=== PATIENT | female | born 1935 | race Caucasian/White ===

== ENCOUNTER 2018-01-17 12:17 | Emergency (ER) | payer MEDICARE, OTHER ==
[~2018-01-17] VITALS: Ht 167.6 cm; Wt 69.4 kg
[~2018-01-17 12:17] MED LIST: AMIT75 PO; ASPI325 PO; ASPI81CH PO; ATOR40TA PO; CLOP75 PO; LOSHYD PO; METO25 PO; METO50 PO; NAPR500 PO; PRED20 PO; Prinivil10 MG PO
[2018-01-17] MEDS ORDERED: TYLECOD3 PO (14:27)
== END 2018-01-17 14:44 | disposition home or self-care (01) ==
LOC: ER 12:17
DX: S09.90XA Unspecified injury of head, initial encounter (principal); S20.211A Contusion of right front wall of thorax, initial encounter; M54.5 Low back pain; M54.6 Pain in thoracic spine; W18.2XXA Fall in (into) shower or empty bathtub, initial encounter; Z88.5 Allergy status to narcotic agent; Z88.8 Allergy status to other drugs, medicaments and biological substances; Z88.6 Allergy status to analgesic agent; Z79.899 Other long term (current) drug therapy
CPT/HCPCS: 70450; 71046; 72100; 72125; 99284; L0160

== ENCOUNTER 2018-03-13 07:04 | Day surgery (SDC) | payer MEDICARE, OTHER ==
[~2018-03-13] VITALS: Ht 167.6 cm; Wt 67.1 kg
[~2018-03-13 07:04] MED LIST changes: +TYLECOD3 PO
== END 2018-03-13 22:53 | disposition home or self-care (01) ==
LOC: ORSCMMR 07:04 → ORD 08:00 → ORSCMMR 22:53
PROVIDERS: Internal Medicine Gastroenterology
PROC: 0DB48ZX Excision of Esophagogastric Junction, Via Natural or Artificial Opening Endoscopic, Diagnostic (ICD-10-PCS; principal; 2018-03-13 08:00)
PROC: 0DB68ZX Excision of Stomach, Via Natural or Artificial Opening Endoscopic, Diagnostic (ICD-10-PCS; principal; 2018-03-13 08:00)
PROC: 0DB88ZX Excision of Small Intestine, Via Natural or Artificial Opening Endoscopic, Diagnostic (ICD-10-PCS; principal; 2018-03-13 08:00)
PROC: 0DB58ZX Excision of Esophagus, Via Natural or Artificial Opening Endoscopic, Diagnostic (ICD-10-PCS; principal; 2018-03-13 08:00)
DX: R10.13 Epigastric pain (principal); I69.820 Aphasia following other cerebrovascular disease; K44.9 Diaphragmatic hernia without obstruction or gangrene; K29.70 Gastritis, unspecified, without bleeding; K22.2 Esophageal obstruction; E78.1 Pure hyperglyceridemia; Z87.891 Personal history of nicotine dependence; I10 Essential (primary) hypertension; Z87.11 Personal history of peptic ulcer disease; Z79.82 Long term (current) use of aspirin; Z79.899 Other long term (current) drug therapy
CPT/HCPCS: J7030

== ENCOUNTER 2018-03-23 21:21 | Emergency (ER) | payer MEDICARE, OTHER ==
[~2018-03-23] VITALS: Ht 162.6 cm; Wt 70.3 kg
[2018-03-23 21:57] LABS: BASOPHILS ABSOLUTE AUTO 0.04 K/mm3 (0.00-0.23); BASOPHILS PERCENT AUTO 1 % (0-2); EOSINOPHILS ABSOLUTE AUTO 0.26 K/mm3 (0.00-0.68); EOSINOPHILS PERCENT AUTO 4 % (0-6); Hematocrit 34.3 % (33.0-51.0); Hemoglobin 11.5 g/dL (11.5-16.0); IMMATURE GRAN ABSOLUTE AUTO 0.01 K/mm3 (0.00-0.10); IMMATURE GRAN PERCENT AUTO 0 % (0-1); LYMPHOCYTES ABSOLUTE AUTO 1.84 K/mm3 (0.84-5.20); LYMPHOCYTES PERCENT AUTO 29 % (21-46); MONOCYTES ABSOLUTE AUTO 0.52 K/mm3 (0.16-1.47); MONOCYTES PERCENT AUTO 8 % (4-13); Mean Corpuscular HGB 28.7 pg (26.0-34.0); Mean Corpuscular HGB Conc 33.5 g/dL (31.5-36.5); Mean Corpuscular Volume 86 fL (80-100); Mean Platelet Volume 10.3 fL (9.1-12.4); NEUTROPHILS ABSOLUTE AUTO 3.71 K/mm3 (1.96-9.15); NEUTROPHILS PERCENT AUTO 58 % (41-73); Platelet Count 392 K/mm3 (150-400); RDW Coefficient Variation 13.6 % (11.7-14.2); RDW Standard Deviation 42.5 fL (35.1-46.3); Red Blood Cell Count 4.01 M/mm3 (3.80-5.20); White Blood Cell Count 6.38 K/mm3 (4.00-11.30)
[2018-03-23 22:11] LABS: Alanine Aminotransfer (ALT/SGP 23 U/L (12-78); Albumin, Blood 3.3 g/dL (3.4-5.0); Alk Phos 96 U/L (50-136); Anion Gap 10 mmol/L (6-16); Aspartate Aminotrans (AST/SGOT 24 U/L (12-37); Bilirubin, Total 0.4 mg/dL (0.1-1.0); Blood Urea Nitrogen 8 mg/dL (8-24); Bun/Creatinine Ratio 13.1 (12.0-20.0); CO2, Blood 23 mmol/L (21-32); Calcium, Blood 9.2 mg/dL (8.5-10.1); Chloride, Blood 104 mmol/L (98-108); Creatinine, Blood 0.61 mg/dL (0.40-1.00); Globulin, Blood 3.3 g/dL (2.2-4.0); Glomerular Filtration Rate >60 (60-); Glucose, Blood 106 mg/dL (70-99); Potassium, Blood 3.1 mmol/L (3.5-5.5); Sodium, Blood 137 mmol/L (136-145); Total Protein, Blood 6.6 g/dL (6.4-8.2); Troponin I <0.015 ng/mL (0.000-0.040)
[2018-03-23] MEDS ORDERED: Amitriptyline H25 MG PO (23:14)
== END 2018-03-23 23:20 | disposition home or self-care (01) ==
LOC: ER 21:21
PROVIDERS: Emergency Medicine
DX: R07.9 Chest pain, unspecified (principal); G47.00 Insomnia, unspecified; Z88.5 Allergy status to narcotic agent; Z88.6 Allergy status to analgesic agent; Z79.899 Other long term (current) drug therapy; I10 Essential (primary) hypertension
CPT/HCPCS: 71046; 80053; 84484; 85025; 99285-25

== ENCOUNTER 2018-07-15 21:45 | Observation (INO) | payer MEDICARE, OTHER ==
[~2018-07-15] VITALS: Ht 165.1 cm; Wt 86.6 kg
[~2018-07-15 21:45] MED LIST changes: +AMIT50 PO; +Amitriptyline H25 MG PO; +ENOX40I SC; +Percocet 5-3251 EACH PO
[2018-07-15 23:05] LABS: BASOPHILS ABSOLUTE AUTO 0.03 K/mm3 (0.00-0.23); BASOPHILS PERCENT AUTO 0 % (0-2); EOSINOPHILS ABSOLUTE AUTO 0.03 K/mm3 (0.00-0.68); EOSINOPHILS PERCENT AUTO 0 % (0-6); Hematocrit 28.9 % (33.0-51.0); Hemoglobin 9.7 g/dL (11.5-16.0); IMMATURE GRAN ABSOLUTE AUTO 0.05 K/mm3 (0.00-0.10); IMMATURE GRAN PERCENT AUTO 1 % (0-1); LYMPHOCYTES ABSOLUTE AUTO 0.69 K/mm3 (0.84-5.20); LYMPHOCYTES PERCENT AUTO 7 % (21-46); MONOCYTES PERCENT AUTO 8 % (4-13); Mean Corpuscular HGB 29.1 pg (26.0-34.0); Mean Corpuscular HGB Conc 33.6 g/dL (31.5-36.5); Mean Corpuscular Volume 87 fL (80-100); Mean Platelet Volume 10.3 fL (9.1-12.4); NEUTROPHILS ABSOLUTE AUTO 9.08 K/mm3 (1.96-9.15); NEUTROPHILS PERCENT AUTO 85 % (41-73); Platelet Count 447 K/mm3 (150-400); RDW Coefficient Variation 13.7 % (11.7-14.2); RDW Standard Deviation 43.6 fL (35.1-46.3); Red Blood Cell Count 3.33 M/mm3 (3.80-5.20); White Blood Cell Count 10.68 K/mm3 (4.00-11.30)
[2018-07-15 23:16] LABS: Alanine Aminotransfer (ALT/SGP 54 U/L (12-78); Albumin, Blood 2.9 g/dL (3.4-5.0); Albumin/Globulin Ratio 0.8 (0.8-1.8); Alk Phos 196 U/L (50-136); Anion Gap 13 mmol/L (6-16); Aspartate Aminotrans (AST/SGOT 66 U/L (12-37); Bilirubin, Total 1.6 mg/dL (0.1-1.0); Blood Urea Nitrogen 13 mg/dL (8-24); Bun/Creatinine Ratio 21.3 (12.0-20.0); CO2, Blood 24 mmol/L (21-32); Calcium, Blood 8.8 mg/dL (8.5-10.1); Chloride, Blood 97 mmol/L (98-108); Creatinine, Blood 0.61 mg/dL (0.40-1.00); Globulin, Blood 3.6 g/dL (2.2-4.0); Glomerular Filtration Rate >60 (60-); Glucose, Blood 93 mg/dL (70-99); Magnesium, Blood 1.8 mg/dL (1.6-2.4); Potassium, Blood 3.5 mmol/L (3.5-5.5); Sodium, Blood 134 mmol/L (136-145); Total Protein, Blood 6.5 g/dL (6.4-8.2); Troponin I <0.015 ng/mL (0.000-0.040)
[2018-07-15 23:17] LABS: D-Dimer, Quantitative 1.64 mg/L FEU (0.00-0.52); International Normalized Ratio 1.04; Prothrombin Time Results 10.7 Sec (9.7-11.5)
[2018-07-16] MEDS ORDERED: ASPI325 PO (03:28)
[2018-07-16 12:47] LABS: Hemoglobin 9.3 g/dL (11.5-16.0); Mean Corpuscular HGB 28.8 pg (26.0-34.0); Mean Corpuscular HGB Conc 32.1 g/dL (31.5-36.5); Mean Platelet Volume 9.7 fL (9.1-12.4); Platelet Count 446 K/mm3 (150-400); RDW Standard Deviation 45.7 fL (35.1-46.3); Red Blood Cell Count 3.23 M/mm3 (3.80-5.20); White Blood Cell Count 6.58 K/mm3 (4.00-11.30)
[2018-07-16 12:53] LABS: Mean Corpuscular Volume 90 fL (80-100)
[2018-07-16 13:10] LABS: Alanine Aminotransfer (ALT/SGP 51 U/L (12-78); Albumin, Blood 2.7 g/dL (3.4-5.0); Albumin/Globulin Ratio 0.8 (0.8-1.8); Alk Phos 174 U/L (50-136); Anion Gap 10 mmol/L (6-16); Aspartate Aminotrans (AST/SGOT 60 U/L (12-37); Bilirubin, Total 1.1 mg/dL (0.1-1.0); Blood Urea Nitrogen 11 mg/dL (8-24); CO2, Blood 25 mmol/L (21-32); Calcium, Blood 9.1 mg/dL (8.5-10.1); Chloride, Blood 100 mmol/L (98-108); Creatinine, Blood 0.55 mg/dL (0.40-1.00); Globulin, Blood 3.3 g/dL (2.2-4.0); Glomerular Filtration Rate >60 (60-); Glucose, Blood 78 mg/dL (70-99); Potassium, Blood 3.5 mmol/L (3.5-5.5); Sodium, Blood 135 mmol/L (136-145)
[2018-07-16 13:58] LABS: Source, Urine Clean Catch
[2018-07-16 14:15] LABS: Bilirubin, Urine Neg (Neg); Blood, Urine 2+ (Neg); Glucose Qualitative, Urine Neg (Neg); Ketones, Urine 4+ (Neg); Leukocyte Esterase, Urine Neg (Neg); Nitrite, Urine Neg (Neg); Protein, Urine Neg (Neg); Specific Gravity, Urine 1.015 (1.003-1.022); Urobilinogen, Urine 1+ (Normal)
[2018-07-16 14:24] LABS: Appearance, Urine Clear (Clear); Color, Urine Yellow (P-Yellow)
[2018-07-16 14:25] LABS: Bacteria Few /hpf; Squamous Epithelial Cells Few /hpf (Few); White Blood Cells, Urine 0-2 /hpf (0-5)
[2018-07-16 14:32] LABS: U Amphetamine Screen Not Detected; U Barbituate Screen Not Detected; U Benzodiazapine Screen Not Detected; U Buprenorphine Screen Not Detected; U Cannabinoids Screen Not Detected; U Cocaine Screen Not Detected; U Methadone Screen Not Detected; U Methamphetamine Screen Not Detected; U Opiates Screen Not Detected; U Oxycodone Screen Not Detected; U Phencyclidine Screen Not Detected; U Propoxyphene Screen Not Detected
[2018-07-17] MEDS ORDERED: GAVILAX17 GM PO (13:37)
== END 2018-07-17 16:05 | disposition home or self-care (01) ==
LOC: ER 21:45 → MEDS 21:46 → SURS 07-16 02:00 → MEDS 07-16 02:24 → SURS 07-16 18:45
PROVIDERS: Emergency Medicine; Internal Medicine
DX: R55 Syncope and collapse (principal); I10 Essential (primary) hypertension; I63.9 Cerebral infarction, unspecified; D64.9 Anemia, unspecified; Z87.19 Personal history of other diseases of the digestive system; Z86.79 Personal history of other diseases of the circulatory system; Z86.73 Personal history of transient ischemic attack (TIA), and cerebral infarction without residual deficits; Z79.01 Long term (current) use of anticoagulants; Z79.899 Other long term (current) drug therapy; Z88.5 Allergy status to narcotic agent; Z88.8 Allergy status to other drugs, medicaments and biological substances; Z96.659 Presence of unspecified artificial knee joint; Z79.82 Long term (current) use of aspirin; Z96.651 Presence of right artificial knee joint
CPT/HCPCS: 36415; 71260; 73562-RT; 80053; 81001; 83735; 84484; 85025; 85027; 85379; 85610; 85730; 93005; 93010; 93306; 96360; 96361; 96372; 97110; 97116; 97162; 97530; 99285-25; G0378; G8978; G8979; J1650; J7030; Q9967

== ENCOUNTER 2019-06-18 06:33 | Day surgery (SDC) | payer MEDICARE, OTHER ==
[~2019-06-18] VITALS: Ht 167.6 cm; Wt 68.4 kg
[~2019-06-18 06:33] MED LIST changes: +GAVILAX17 GM PO
--- NOTE | 2019-06-18 07:14 | NUR ---
History, Chart, Medications and Allergies reviewed before start of procedure. Lungs clear T/O to Auscultation. Patient confirms NPO status and agrees with scheduled surgery.
--- NOTE | 2019-06-18 12:46 | NUR ---
RAPID RESPONSE PT A&0X4, VSS, FIRST TIME UP POST-OP L TKA W/GB & FWW. TOOK FEW STEPS, MOVED THE CHAIR TO BEHIND PT, PT REPORTED "I AM GOING TO PASS OUT." QUICKLY SEATED PT PT BEGAN TO PASS OUT. CALLED CHARGE AND RAPID RESPONSE. LAYED PT ALL THE WAY BACK IN CHAIR WITH LEGS ELEVATED, APICAL PULSE PRESENT, TURNED UP OXYGEN TO 5 L NC, CHANGED IVF TO BOLUS, BEGAN TAKING VITALS. PT MOVED, OPENED EYES, REPORTED EXTREME PAIN IN LLE, MOVED BLE'S AND BEGAN MOANING REPEATEDLY R/T REP PAIN IN LLE.
--- NOTE | 2019-06-18 17:20 | NUR ---
SHIFT SUMMARY PT A&OX4, VSS, S/P L TKA, AQUACEL CDI/KI WRAP, TEDS, SCDS, POLAR RACHEL ON. PAIN MANAGED PER EMAR. [place] PO, DENIES N&V. AMB W/FWW & GB TO BSC & CHAIR. RAPID RESPONSE CALLED; PT HAD A SYNCOPAL EPISODE TODAY UPON REACHING CHAIR FOLLOWING 1ST TIME OOB; HAS REMAINED ASYPTOMATIC SINCE. WILL REPORT TO ONCOMING NOC RN.
--- NOTE | 2019-06-18 21:38 | NUR ---
OF 10 OUT OF 10 PAIN.RN CALLED.BSC ONLY DUE TO PAIN LEVEL.
[2019-06-19 04:52] LABS: BASOPHILS ABSOLUTE AUTO 0.02 K/mm3 (0.00-0.23); BASOPHILS PERCENT AUTO 0 % (0-2); EOSINOPHILS ABSOLUTE AUTO 0.09 K/mm3 (0.00-0.68); EOSINOPHILS PERCENT AUTO 1 % (0-6); Hemoglobin 9.7 g/dL (11.5-16.0); IMMATURE GRAN ABSOLUTE AUTO 0.04 K/mm3 (0.00-0.10); IMMATURE GRAN PERCENT AUTO 0 % (0-1); LYMPHOCYTES ABSOLUTE AUTO 0.93 K/mm3 (0.84-5.20); LYMPHOCYTES PERCENT AUTO 8 % (21-46); MONOCYTES ABSOLUTE AUTO 0.93 K/mm3 (0.16-1.47); MONOCYTES PERCENT AUTO 8 % (4-13); Mean Corpuscular HGB 28.2 pg (26.0-34.0); Mean Corpuscular HGB Conc 32.3 g/dL (31.5-36.5); Mean Corpuscular Volume 87 fL (80-100); Mean Platelet Volume 9.3 fL (9.1-12.4); NEUTROPHILS ABSOLUTE AUTO 9.25 K/mm3 (1.96-9.15); NEUTROPHILS PERCENT AUTO 82 % (41-73); Platelet Count 379 K/mm3 (150-400); RDW Coefficient Variation 13.4 % (11.7-14.2); RDW Standard Deviation 42.9 fL (35.1-46.3); Red Blood Cell Count 3.44 M/mm3 (3.80-5.20); White Blood Cell Count 11.26 K/mm3 (4.00-11.30)
[2019-06-19 05:08] LABS: Anion Gap 6 mmol/L (6-16); Blood Urea Nitrogen 8 mg/dL (8-24); Bun/Creatinine Ratio 13.3 (12.0-20.0); CO2, Blood 28 mmol/L (21-32); Calcium, Blood 8.4 mg/dL (8.5-10.1); Chloride, Blood 102 mmol/L (98-108); Glomerular Filtration Rate >60 (60-); Glucose, Blood 128 mg/dL (70-99); Potassium, Blood 3.4 mmol/L (3.5-5.5); Sodium, Blood 136 mmol/L (136-145)
--- NOTE | 2019-06-19 06:06 | NUR ---
SHIFT SUMMARY: SONY IS POD1 FOR A LEFT TOTAL KNEE. SHE IS A&OX4. SHE IS TOLERATING PO INTAKE ALTHOUGH SHE DID HAVE AN EPISODE OF EMESIS AFTER TAKING ORAL MEDICATION ON AN EMPTY STOMACH. SHE WAS ENCOURAGED TO EAT PRIOR TO TAKING MEDICATION ESPECIALLY SINCE SHE DOES HAVE MULTIPLE ULCERS. SHE HAS BEEN TRANSFERRING TO THE BEDSIDE COMMODE BUT HAS DECLINED TO WALK. SHE REPORTS POOR PAIN CONTROL WITH PO MEDICATIONS, SOMEWHAT BETTER WITH IV DILAUDID (5/10). SHE HAS RESTED FOR THE MAJORITY OF THE NIGHT. SHE IS ABLE TO MAKE HER NEEDS KNOWN. SHE IS VOIDING WITHOUT DIFFICULTY. IV IS PATENT, SALINE LOCKED. SHE REPORTED INTENSE PAIN FOR THE FIRST COUPLE OF WEEKS AFTER HER RIGHT TOTAL KNEE REPLACEMENT IN THE PAST. SHE IS LYING IN BED WITH HER CALL LIGHT IN REACH.
--- NOTE | 2019-06-19 18:16 | NUR ---
SUMMARY PATIENT REPORTS INTERMITTENT NAUSEA MEDICATED X2 WITH RELIEF OF NAUSEA. PATIENT REPORTS LEFT KNEE PAIN BUT DECLINES PAIN MEDS AT THIS TIME AND STATES SHE WILL CALL TO REQUEST MEDS NEEDED. POLAR PACK IN PLACE TO LEFT KNEE. PATIENT IS PLANNING TO DISCHARGE TO HOME TOMORROW AND FEELS SHE WILL BE READY TO MANAGE AT HOME
[2019-06-20] MEDS ORDERED: Percocet 5-3251 EACH PO (09:52)
[2019-06-20] MEDS ORDERED: ASPI81CH PO (09:55)
--- NOTE | 2019-06-20 12:25 | NUR ---
DISCHARGE INSTRUCTIONS GIVEN, PT SENT WITH SCRIPTS. ACCOMPANIED OFF UNIT BY THIS RN AND KHOA RUIZ.
== END 2019-06-20 12:15 | disposition home or self-care (01) ==
LOC: ORSCMMR 06:33 → ORD 07:30 → ORSCMMR 08:15 → SURS 10:47 → ORD 15:45 → ORSCMMR 06-20 12:15
PROVIDERS: Orthopaedic Surgery
PROC: 0SRD0JA Replacement of Left Knee Joint with Synthetic Substitute, Uncemented, Open Approach (ICD-10-PCS; principal; 2019-06-18 08:30)
DX: M17.12 Unilateral primary osteoarthritis, left knee (principal); M10.9 Gout, unspecified; I10 Essential (primary) hypertension; Z87.891 Personal history of nicotine dependence; Z79.899 Other long term (current) drug therapy
CPT/HCPCS: 36415; 73560-LT; 80048; 82947; 85025; 86850; 86900; 86901; 88300; 97110; 97116; 97162; C1713; C1776; J0171; J0690; J0735; J1170; J1885; J2250; J2310; J2405; J2704; J2795; J7120

== ENCOUNTER 2020-01-12 17:49 | Emergency (ER) | payer MEDICARE, OTHER ==
[~2020-01-12] VITALS: Ht 167.6 cm; Wt 63.5 kg
[2020-01-12 18:13] LABS: BASOPHILS ABSOLUTE AUTO 0.07 K/mm3 (0.00-0.23); BASOPHILS PERCENT AUTO 1 % (0-2); EOSINOPHILS ABSOLUTE AUTO 0.28 K/mm3 (0.00-0.68); EOSINOPHILS PERCENT AUTO 3 % (0-6); Hemoglobin 11.8 g/dL (11.5-16.0); IMMATURE GRAN ABSOLUTE AUTO 0.02 K/mm3 (0.00-0.10); IMMATURE GRAN PERCENT AUTO 0 % (0-1); LYMPHOCYTES ABSOLUTE AUTO 2.17 K/mm3 (0.84-5.20); LYMPHOCYTES PERCENT AUTO 27 % (21-46); MONOCYTES ABSOLUTE AUTO 0.69 K/mm3 (0.16-1.47); MONOCYTES PERCENT AUTO 9 % (4-13); Mean Corpuscular HGB 27.4 pg (26.0-34.0); Mean Corpuscular HGB Conc 31.9 g/dL (31.5-36.5); Mean Corpuscular Volume 86 fL (80-100); Mean Platelet Volume 9.8 fL (9.1-12.4); NEUTROPHILS ABSOLUTE AUTO 4.91 K/mm3 (1.96-9.15); NEUTROPHILS PERCENT AUTO 60 % (41-73); Platelet Count 454 K/mm3 (150-400); RDW Coefficient Variation 13.9 % (11.7-14.2); RDW Standard Deviation 43.8 fL (35.1-46.3); White Blood Cell Count 8.14 K/mm3 (4.00-11.30)
[2020-01-12 18:27] LABS: Alanine Aminotransfer (ALT/SGP 17 U/L (12-78); Albumin, Blood 3.3 g/dL (3.4-5.0); Albumin/Globulin Ratio 0.9 (0.8-1.8); Alk Phos 126 U/L (50-136); Anion Gap 5 mmol/L (6-16); Aspartate Aminotrans (AST/SGOT 18 U/L (12-37); Bilirubin, Total 0.3 mg/dL (0.1-1.0); Blood Urea Nitrogen 9 mg/dL (8-24); CO2, Blood 25 mmol/L (21-32); Calcium, Blood 9.4 mg/dL (8.5-10.1); Chloride, Blood 106 mmol/L (98-108); Creatinine, Blood 0.69 mg/dL (0.40-1.00); Globulin, Blood 3.5 g/dL (2.2-4.0); Glomerular Filtration Rate >60 (60-); Glucose, Blood 105 mg/dL (70-99); Potassium, Blood 3.6 mmol/L (3.5-5.5); Sodium, Blood 136 mmol/L (136-145); Total Protein, Blood 6.8 g/dL (6.4-8.2); Troponin I <0.015 ng/mL (0.000-0.040)
== END 2020-01-12 21:04 | disposition home or self-care (01) ==
LOC: ER 17:49
PROVIDERS: Student in an Organized Health Care Education/Training Program
DX: M25.512 Pain in left shoulder (principal); I10 Essential (primary) hypertension; Z88.5 Allergy status to narcotic agent; Z88.8 Allergy status to other drugs, medicaments and biological substances; Z79.899 Other long term (current) drug therapy; Z87.891 Personal history of nicotine dependence
CPT/HCPCS: 71045; 80053; 84484; 85025; 93005; 93010; 99284-25

== ENCOUNTER → 2021-07-01 | Outpatient (CLI) | payer MEDICARE, OTHER | END | disposition home or self-care (01) | LOC: LAB SHORT 10:42 | DX: B35.1 Tinea unguium (principal); L60.2 Onychogryphosis | CPT/HCPCS: 88305; 88312 ==

== ENCOUNTER 2021-12-10 12:07 | Day surgery (SDC) | payer MEDICARE, OTHER ==
[~2021-12-10] VITALS: Ht 160 cm; Wt 68.2 kg
[~2021-12-10 12:07] MED LIST changes: +HYDCHL25 PO; +LOSA50 PO; +OMEP20ER PO; +OXYC5; +POTA10T PO
--- NOTE | 2021-12-10 13:35 | NUR ---
12/10/21 1335 Manju Brooks EKG PREFORMED IN PREOP PER DR. AMADOR'S REQUEST
--- NOTE | 2021-12-10 13:54 | NUR ---
12/10/21 1354 Scott Cook PATH IDENTIFIED & DISPOSED PER SURGEON. NO PATHOLOGY ORDER.
== END 2021-12-10 14:50 | disposition home or self-care (01) ==
LOC: ORSCSDS 12:07
PROVIDERS: Podiatrist Foot & Ankle Surgery
PROC: 0Y6X0Z0 Detachment at Right 5th Toe, Complete, Open Approach (ICD-10-PCS; principal; 2021-12-10 13:30)
DX: L89.893 Pressure ulcer of other site, stage 3 (principal); S93.104A Unspecified dislocation of right toe(s), initial encounter; I10 Essential (primary) hypertension; Z87.891 Personal history of nicotine dependence; Z79.899 Other long term (current) drug therapy
CPT/HCPCS: 93005; 93010; J0690; J1100; J2250; J2405; J2704; J3010; J7120

== ENCOUNTER → 2023-04-30 | Outpatient (CLI) | payer MEDICARE, OTHER ==
[~2023-04-30] MED LIST changes: +ACET325 PO
== END ==
LOC: LAB 12:27 → LAB SHORT 12:27
DX: R31.9 Hematuria, unspecified (principal); R30.0 Dysuria
CPT/HCPCS: 87086

== ENCOUNTER → 2023-05-29 | Outpatient (CLI) | payer MEDICARE, OTHER ==
[2023-05-29 17:21] LABS: Source, Urine Clean Catch
[2023-05-29 18:24] LABS: Appearance, Urine Clear (Clear); Bilirubin, Urine Neg (Neg); Blood, Urine 1+ (Neg); Color, Urine Yellow (P-Yellow); Glucose Qualitative, Urine Neg (Neg); Ketones, Urine Neg (Neg); Leukocyte Esterase, Urine Neg (Neg); Nitrite, Urine Neg (Neg); Protein, Urine Neg (Neg); Urobilinogen, Urine NORM (Normal)
[2023-05-29 19:57] LABS: Red Blood Cells, Urine 0-2 /hpf (0-2); Squamous Epithelial Cells Rare /hpf (Few); White Blood Cells, Urine 0-2 /hpf (0-5)
[2023-05-29 19:58] LABS: Amorphous Light (0-Heavy); Bacteria Mod /hpf
== END | disposition home or self-care (01) ==
LOC: LAB SHORT 17:19 → LAB 17:19
PROVIDERS: Registered Nurse
DX: N30.91 Cystitis, unspecified with hematuria (principal)
CPT/HCPCS: 81001; 87086

== ENCOUNTER 2023-08-16 12:15 | Emergency (ER) | payer MEDICARE, OTHER ==
[~2023-08-16] VITALS: Ht 160 cm; Wt 64.0 kg
[2023-08-16 13:24] LABS: BASOPHILS ABSOLUTE AUTO 0.05 K/mm3 (0.00-0.23); BASOPHILS PERCENT AUTO 1 % (0-2); EOSINOPHILS ABSOLUTE AUTO 0.13 K/mm3 (0.00-0.68); EOSINOPHILS PERCENT AUTO 2 % (0-6); Hematocrit 33.3 % (33.0-51.0); Hemoglobin 11.5 g/dL (11.5-16.0); IMMATURE GRAN ABSOLUTE AUTO 0.02 K/mm3 (0.00-0.10); IMMATURE GRAN PERCENT AUTO 0 % (0-1); LYMPHOCYTES ABSOLUTE AUTO 1.08 K/mm3 (0.84-5.20); LYMPHOCYTES PERCENT AUTO 15 % (21-46); MONOCYTES ABSOLUTE AUTO 0.68 K/mm3 (0.16-1.47); MONOCYTES PERCENT AUTO 9 % (4-13); Mean Corpuscular HGB 30.2 pg (26.0-34.0); Mean Corpuscular HGB Conc 34.5 g/dL (31.5-36.5); Mean Corpuscular Volume 87 fL (80-100); Mean Platelet Volume 9.5 fL (9.1-12.4); NEUTROPHILS ABSOLUTE AUTO 5.39 K/mm3 (1.96-9.15); NEUTROPHILS PERCENT AUTO 73 % (41-73); Platelet Count 434 K/mm3 (150-400); RDW Coefficient Variation 13.1 % (11.7-14.2); RDW Standard Deviation 41.6 fL (35.1-46.3); Red Blood Cell Count 3.81 M/mm3 (3.80-5.20); White Blood Cell Count 7.35 K/mm3 (4.00-11.30)
[2023-08-16 13:53] LABS: Thyroid Stimulating Hormone 1.44 uIU/mL (0.360-4.800)
[2023-08-16 13:54] LABS: Albumin, Blood 3.2 g/dL (3.4-5.0); Bilirubin, Total 0.8 mg/dL (0.1-1.0); Bun/Creatinine Ratio 17.5 (12.0-20.0); Calcium, Blood 9.4 mg/dL (8.5-10.1); Creatinine, Blood 0.57 mg/dL (0.40-1.00); Globulin, Blood 3.1 g/dL (2.2-4.0); Potassium, Blood 3.4 mmol/L (3.5-5.5); Total Protein, Blood 6.3 g/dL (6.4-8.2)
[2023-08-16 14:00] VITALS: BP 163/114
== END 2023-08-16 14:39 | disposition home or self-care (01) ==
LOC: ER 12:15
PROVIDERS: Emergency Medicine
DX: I47.10 Supraventricular tachycardia, unspecified (principal); I10 Essential (primary) hypertension; Z88.5 Allergy status to narcotic agent; Z88.8 Allergy status to other drugs, medicaments and biological substances; Z88.6 Allergy status to analgesic agent; Z79.899 Other long term (current) drug therapy; Z79.82 Long term (current) use of aspirin; Z87.891 Personal history of nicotine dependence
CPT/HCPCS: 71045; 80053; 82947; 84443; 84484; 85025; 93005; 93010; 99285-25

== ENCOUNTER 2023-09-27 07:06 | Day surgery (SDC) | payer MEDICARE, OTHER ==
[~2023-09-27] VITALS: Ht 162.6 cm; Wt 64.0 kg
[~2023-09-27 07:06] MED LIST changes: +METO25ER PO
[2023-09-27] MEDS ORDERED: Aspirin 325 MG Tab PO ONE (08:38)
[2023-09-27] MEDS ORDERED: Heparin Sodium 1000 Units/ML 10ML MDV ONE (08:40)
[2023-09-27] MEDS ORDERED: NS 1,000 ML IV ONE ×2 (08:40→08:49)
[2023-09-27] MEDS ORDERED: Nitroglycerin 2 MG/20 ML BTL ONE (08:40)
[2023-09-27] MEDS ORDERED: NS 250 ML IV ONE (08:40)
[2023-09-27] MEDS ORDERED: NiCARdipine HCL 1,000 MCG/5 ML SYR ONE (08:40)
[2023-09-27] MEDS ORDERED: Midazolam HCl 1MG / ML 2ML Vial ONE (08:49)
[2023-09-27] MEDS ORDERED: FentaNYL Citrate 50 MCG/ML 2 ML Injection ONE (08:49)
[2023-09-27] MEDS ORDERED: Atropine Sulfate 0.1 MG/ML 10ML SYR ONE (09:28)
[2023-09-27] MEDS ORDERED: Naloxone HCl 0.4MG / ML 1ML Vial ONE (09:28)
[2023-09-27 10:15] VITALS: BP 167/85
[2023-09-27 10:30] VITALS: BP 167/78
[2023-09-27 10:58] VITALS: BP 155/67
[2023-09-27] MEDS ORDERED: Acetaminophen 325 MG TABLET ONE (11:27)
[2023-09-27 11:30] VITALS: BP 165/79
--- NOTE | 2023-09-27 11:34 | NUR ---
650 MG PO TYLENOL GIVEN TO PATIENT FOR GENERALIZED PAIN AND HEADACHE. VSS ON RA.
--- NOTE | 2023-09-27 11:38 | NUR ---
PATIENT AMBULATING TO RESTROOM WITH ASSISTANCE. BILATERAL TR BANDS IN PLACE. SITES C/D/I SOFT/NONTENDER, NO EVIDENCE OF BLEEDING.
[2023-09-27 12:00] VITALS: BP 164/76
--- NOTE | 2023-09-27 12:21 | NUR ---
10CC AIR REMOVED FROM BILAT TR BANDS. NEG BLEEDING OR SWELLING.
--- NOTE | 2023-09-27 13:02 | NUR ---
PT AMB TO BATHROOM /C SBA. TOLERATED WELL. BILAT WRIST TR BANDS REMOVED AND CLOTH DOT DRSG PLACED. WRIST SPLINTS REAPPLIED. PT AND CAREGIVER VERBALIZED UNDERSTANDING OF WRITTEN AND VERBAL D/C INST. IV REMOVED. PT TAKEN OUT OF THE [facility] VIA W/C.
== END 2023-09-27 13:00 | disposition home or self-care (01) ==
LOC: MHTC 07:06
DX: I35.0 Nonrheumatic aortic (valve) stenosis (principal); I25.10 Atherosclerotic heart disease of native coronary artery without angina pectoris; Z87.891 Personal history of nicotine dependence; I10 Essential (primary) hypertension; Z88.5 Allergy status to narcotic agent; Z86.73 Personal history of transient ischemic attack (TIA), and cerebral infarction without residual deficits
CPT/HCPCS: 76937; 93454; 99152; 99153; A9270; C1769; C1887; C1894; J0461; J1644; J2250; J2310; J3010; J7030; J7050; Q9967

== ENCOUNTER → 2024-04-02 | Outpatient (CLI) | payer MEDICARE, OTHER | END | disposition home or self-care (01) | LOC: LAB 09:14 → LAB SHORT 09:14 | DX: R30.0 Dysuria (principal) | CPT/HCPCS: 87086 ==

== ENCOUNTER 2024-05-31 20:12 | Inpatient (IN) | payer MEDICARE, OTHER ==
[~2024-05-31] VITALS: Ht 160 cm; Wt 61.2 kg
[2024-05-31] MEDS ORDERED: Haloperidol Lactate Inj. 5 MG/ML Injection IV PRN (20:20)
[2024-05-31 20:56] LABS: BASOPHILS ABSOLUTE AUTO 0.05 K/mm3 (0.00-0.23); BASOPHILS PERCENT AUTO 1 % (0-2); EOSINOPHILS ABSOLUTE AUTO 0.12 K/mm3 (0.00-0.68); EOSINOPHILS PERCENT AUTO 1 % (0-6); Hematocrit 37.6 % (33.0-51.0); Hemoglobin 13.4 g/dL (11.5-16.0); IMMATURE GRAN ABSOLUTE AUTO 0.02 K/mm3 (0.00-0.10); IMMATURE GRAN PERCENT AUTO 0 % (0-1); LYMPHOCYTES ABSOLUTE AUTO 2.09 K/mm3 (0.84-5.20); LYMPHOCYTES PERCENT AUTO 25 % (21-46); MONOCYTES ABSOLUTE AUTO 0.81 K/mm3 (0.16-1.47); MONOCYTES PERCENT AUTO 10 % (4-13); Mean Corpuscular HGB 31.4 pg (26.0-34.0); Mean Corpuscular HGB Conc 35.6 g/dL (31.5-36.5); Mean Corpuscular Volume 88 fL (80-100); Mean Platelet Volume 10.2 fL (9.1-12.4); NEUTROPHILS ABSOLUTE AUTO 5.27 K/mm3 (1.96-9.15); NEUTROPHILS PERCENT AUTO 63 % (41-73); Platelet Count 449 K/mm3 (150-400); RDW Standard Deviation 41.9 fL (35.1-46.3); Red Blood Cell Count 4.27 M/mm3 (3.80-5.20); White Blood Cell Count 8.36 K/mm3 (4.00-11.30)
[2024-05-31 20:58] LABS: Albumin, Blood 4.1 g/dL (3.4-5.0); Albumin/Globulin Ratio 1.3 (0.8-1.8); Bilirubin, Total 0.9 mg/dL (0.1-1.0); Bun/Creatinine Ratio 19.5 (12.0-20.0); Calcium, Blood 10.8 mg/dL (8.5-10.1); Creatinine, Blood 0.56 mg/dL (0.40-1.00); Globulin, Blood 3.2 g/dL (2.2-4.0); Magnesium, Blood 1.8 mg/dL (1.6-2.4); Potassium, Blood 3.4 mmol/L (3.5-5.5); Total Protein, Blood 7.3 g/dL (6.4-8.2)
[2024-05-31] MEDS ORDERED: dexmedeTOMIDine 100 ML IV SCH (21:05)
[2024-05-31] MEDS ORDERED: NS 1,000 ML IV SCH (21:40)
[2024-05-31] MEDS ORDERED: Haloperidol Lactate Inj. 5 MG/ML Injection IV ONE (22:20)
[2024-05-31 22:51] LABS: Influenza A, PCR NEGATIVE (NEGATIVE); Influenza B, PCR NEGATIVE (NEGATIVE); Resp Syncytial Virus, PCR NEGATIVE (NEGATIVE); SARS-Cov-2 (COVID-19) PCR, MMC NEGATIVE (NEGATIVE)
[2024-05-31 22:54] LABS: Thyroid Stimulating Hormone 6.02 uIU/mL (0.360-4.800)
[2024-05-31] MEDS ORDERED: Haloperidol Lactate Inj. 5 MG/ML Injection IM ONE (23:10)
[2024-05-31 23:35] LABS: Source, Urine Straight Cath
[2024-05-31 23:43] LABS: Bilirubin, Urine Neg (Neg); Blood, Urine 4+ (Neg); Glucose Qualitative, Urine Neg (Neg); Ketones, Urine 2+ (Neg); Leukocyte Esterase, Urine Neg (Neg); Nitrite, Urine Neg (Neg); Protein, Urine 1+ (Neg); Specific Gravity, Urine 1.015 (1.003-1.022); Urobilinogen, Urine NORM (Normal)
[2024-05-31 23:49] LABS: Appearance, Urine Clear (Clear); Color, Urine Yellow (P-Yellow)
[2024-05-31 23:51] LABS: Bacteria Many /hpf; Squamous Epithelial Cells Rare /hpf (Few); White Blood Cells, Urine 0-2 /hpf (0-5)
[2024-06-01] MEDS ORDERED: FLU VACC TS2024-25(6MOS UP)/PF 45 MCG/0.5 ML SYRINGE IM SCH (01:30)
[2024-06-01] MEDS ORDERED: CefTRIAXone Sodium 1,000 MG in NS 100 ML IV SCH (01:37)
[2024-06-01] MEDS ORDERED: Lactated Ringer's 1,000 ML IV SCH (02:00)
[2024-06-01] MEDS ORDERED: Potassium Phosphate Dibasic 20 MM in Dextrose 5% 500 ML IV STA (02:57)
[2024-06-01 05:15] LABS: BASOPHILS ABSOLUTE AUTO 0.02 K/mm3 (0.00-0.23); BASOPHILS PERCENT AUTO 0 % (0-2); EOSINOPHILS PERCENT AUTO 0 % (0-6); Hematocrit 31.4 % (33.0-51.0); Hemoglobin 11.3 g/dL (11.5-16.0); IMMATURE GRAN ABSOLUTE AUTO 0.03 K/mm3 (0.00-0.10); IMMATURE GRAN PERCENT AUTO 0 % (0-1); LYMPHOCYTES ABSOLUTE AUTO 1.16 K/mm3 (0.84-5.20); LYMPHOCYTES PERCENT AUTO 14 % (21-46); MONOCYTES ABSOLUTE AUTO 0.69 K/mm3 (0.16-1.47); MONOCYTES PERCENT AUTO 8 % (4-13); Mean Corpuscular HGB 31.7 pg (26.0-34.0); Mean Corpuscular Volume 88 fL (80-100); Mean Platelet Volume 9.5 fL (9.1-12.4); NEUTROPHILS ABSOLUTE AUTO 6.38 K/mm3 (1.96-9.15); NEUTROPHILS PERCENT AUTO 77 % (41-73); Platelet Count 340 K/mm3 (150-400); RDW Coefficient Variation 12.9 % (11.7-14.2); RDW Standard Deviation 41.7 fL (35.1-46.3); Red Blood Cell Count 3.56 M/mm3 (3.80-5.20); White Blood Cell Count 8.28 K/mm3 (4.00-11.30)
[2024-06-01 05:42] LABS: Bun/Creatinine Ratio 13.5 (12.0-20.0); Calcium, Blood 9.5 mg/dL (8.5-10.1); Creatinine, Blood 0.52 mg/dL (0.40-1.00); Potassium, Blood 3.4 mmol/L (3.5-5.5)
[2024-06-01 05:59] LABS: Triiodothyronine, Free 2.06 pg/mL (2.18-3.98)
[2024-06-01] MEDS ORDERED: Losartan Potassium 50 MG Tab PO SCH (09:00)
[2024-06-01] MEDS ORDERED: Enoxaparin 40 MG/0.4 ML SYR SC SCH (09:00)
[2024-06-01] MEDS ORDERED: Lactobacil 2-S.Thermo-Bifido 1 1 Cap PO SCH (09:00)
[2024-06-01 11:44] VITALS: BP 188/95
[2024-06-01 11:45] VITALS: BP 183/102
[2024-06-01 16:09] VITALS: BP 150/87
--- NOTE | 2024-06-01 16:48 | NUR ---
SHIFT SUMMARY PT A&OX4, ABLE TO MAKE NEEDS KNOWN, COOPERATIVE. TRANSFER FROM ED WAS SMOOTH. SHE IS ABLE TO AMBULATE TO THE BATHROOM WITHOUT ANY ACUTE EVENTS. WHEN PT NOTICED THE HOSPITALIST NAME ASSIGNED, SHE "FIRED" THE HOSPITALIST IMMEDIATELY. DR FANG INFORMED ABOUT THIS DECISION AND IS TAKING STEPS TO CORRECT THE ACTION. PT WAS NPO FROM ED, NOW HAS AN APPROPRIATE DIET ORDER. CALL LIGHT WITHIN REACH, BED IN LOWEST POSITION.
[2024-06-01 19:30] VITALS: BP 142/65
[2024-06-02 04:16] VITALS: BP 146/82
--- NOTE | 2024-06-02 05:28 | NUR ---
SHIFT SUMMARY PT A&0 X4 THROUGH SHIFT. TELE WITH SINUS RHYTHM. UP INDEPENDENTLY WITH STEADY GAIT. DENIES COMPLAINTS. ORDER RECEIVED FOR URINE TOX. PT MISSED URINE HAT, STILL AWAITING SAMPLE. SIDE RAILS UP X2, CALL LIGHT WITHIN REACH.
[2024-06-02 07:31] VITALS: BP 189/91
[2024-06-02] MEDS ORDERED: Potassium Chloride 20 MEQ TabCR PO ONE (08:00)
[2024-06-02] MEDS ORDERED: LOSARTAN-HCTZ1 EAC5 PO ×2 (08:05→08:06)
[2024-06-02 08:08] LABS: U Amphetamine Screen Not Detected; U Barbituate Screen Not Detected; U Benzodiazapine Screen Not Detected; U Buprenorphine Screen Not Detected; U Cannabinoids Screen Not Detected; U Cocaine Screen Not Detected; U Methadone Screen Not Detected; U Methamphetamine Screen Not Detected; U Opiates Screen Not Detected; U Oxycodone Screen Not Detected; U Phencyclidine Screen Not Detected
[2024-06-02 10:04] VITALS: BP 193/90
[2024-06-02 10:06] VITALS: BP 175/87
--- NOTE | 2024-06-02 10:11 | NUR ---
PHYSICIAN CONTACT CONTACTED DR ANDREW REGARDING HTN THIS AM. PATIENT HAS ORDERED LOSARTAN, PATIENT STATES SHE TAKES COMBO MED WITH HCTZ AND LOSARTAN. DR ANDREW OKAYED HCTZ TO BE ADDED AND INSTRUCTED TO GIVE LOSARTAN SCHEDULED. THIS WAS DONE. DR ANDREW OKAYED THIS TO BE ORDERED.
[2024-06-02] MEDS ORDERED: HydroCHLOROthiazide 25 mg Tab PO ONE (10:20)
--- NOTE | 2024-06-02 13:58 | NUR ---
DISCHARGE SUMMARY PATIENT DISCHARGED HOME THIS SHIFT WITH NEIGHBOR TO DRIVE. A/O X4. IV REMOVED WITHOUT COMPLICATION. DISCHARGE PACKET GIVEN AND REVIEWED, QUESTIONS ANSWERED, VERBALIZED UNDERSTANDING. NO NEW MEDS TO FAX.
== END 2024-06-02 13:48 | disposition home or self-care (01) | DRG 79 ==
LOC: ER 20:12 → ERHOLD 20:13 → MEDS 06-01 11:35 → ENPENDDIS 06-02 10:36 → MEDS 06-02 13:48
PROVIDERS: Emergency Medicine; Internal Medicine; Student in an Organized Health Care Education/Training Program; ADMIT Internal Medicine
DX: I67.4 Hypertensive encephalopathy (principal); I35.0 Nonrheumatic aortic (valve) stenosis; Z66 Do not resuscitate; R94.6 Abnormal results of thyroid function studies; E83.52 Hypercalcemia; I10 Essential (primary) hypertension; E83.39 Other disorders of phosphorus metabolism; Z86.79 Personal history of other diseases of the circulatory system; Z86.73 Personal history of transient ischemic attack (TIA), and cerebral infarction without residual deficits; Z87.19 Personal history of other diseases of the digestive system; Z79.82 Long term (current) use of aspirin; Z79.899 Other long term (current) drug therapy; Z87.891 Personal history of nicotine dependence
CPT/HCPCS: 0241U; 70450; 80048; 80053; 81001; 82947; 83735; 83970; 84100; 84439; 84443; 84481; 84484; 85025; 87086; 93005; 93010; 96361; 96365; 96366; 96367; 96372-59; 96375; 96376; 99285-25; A9270; G0378; J0696; J1630; J1650; J7030; J7060; J7120

== ENCOUNTER → 2024-07-29 | Outpatient (CLI) | payer MEDICARE, OTHER ==
[~2024-07-29] MED LIST changes: +LOSARTAN-HCTZ1 EAC5 PO
[2024-07-29 17:23] LABS: Source, Urine Clean Catch
[2024-07-29 19:15] LABS: Appearance, Urine Clear (Clear); Bilirubin, Urine Neg (Neg); Blood, Urine 4+ (Neg); Color, Urine Yellow (P-Yellow); Glucose Qualitative, Urine Neg (Neg); Ketones, Urine Neg (Neg); Leukocyte Esterase, Urine 3+ (Neg); Nitrite, Urine Neg (Neg); Protein, Urine 1+ (Neg); Urobilinogen, Urine NORM (Normal)
[2024-07-29 19:16] LABS: Amorphous Light (0-Heavy); Bacteria Few /hpf; Squamous Epithelial Cells Few /hpf (Few)
== END ==
LOC: LAB SHORT 17:21 → LAB 17:21
PROVIDERS: Registered Nurse
DX: Z01.812 Encounter for preprocedural laboratory examination (principal); N39.0 Urinary tract infection, site not specified
CPT/HCPCS: 81001; 87086

== ENCOUNTER 2024-10-13 21:01 | Emergency (ER) | payer MEDICARE, OTHER ==
[~2024-10-13] VITALS: Ht 160 cm; Wt 61.2 kg
[2024-10-13 21:28] LABS: BASOPHILS ABSOLUTE AUTO 0.05 K/mm3 (0.00-0.23); BASOPHILS PERCENT AUTO 1 % (0-2); EOSINOPHILS ABSOLUTE AUTO 0.37 K/mm3 (0.00-0.68); EOSINOPHILS PERCENT AUTO 6 % (0-6); Hemoglobin 11.3 g/dL (11.5-16.0); IMMATURE GRAN ABSOLUTE AUTO 0.01 K/mm3 (0.00-0.10); IMMATURE GRAN PERCENT AUTO 0 % (0-1); LYMPHOCYTES ABSOLUTE AUTO 1.77 K/mm3 (0.84-5.20); LYMPHOCYTES PERCENT AUTO 27 % (21-46); MONOCYTES ABSOLUTE AUTO 0.63 K/mm3 (0.16-1.47); MONOCYTES PERCENT AUTO 10 % (4-13); Mean Corpuscular HGB 30.1 pg (26.0-34.0); Mean Corpuscular HGB Conc 34.2 g/dL (31.5-36.5); Mean Corpuscular Volume 88 fL (80-100); Mean Platelet Volume 9.3 fL (9.1-12.4); NEUTROPHILS ABSOLUTE AUTO 3.63 K/mm3 (1.96-9.15); NEUTROPHILS PERCENT AUTO 56 % (41-73); Platelet Count 365 K/mm3 (150-400); RDW Coefficient Variation 13.4 % (11.7-14.2); RDW Standard Deviation 43.5 fL (35.1-46.3); Red Blood Cell Count 3.75 M/mm3 (3.80-5.20); White Blood Cell Count 6.46 K/mm3 (4.00-11.30)
[2024-10-13 21:52] LABS: Albumin, Blood 3.4 g/dL (3.4-5.0); Albumin/Globulin Ratio 1.1 (0.8-1.8); Bilirubin, Total 0.4 mg/dL (0.1-1.0); Bun/Creatinine Ratio 28.9 (12.0-20.0); Calcium, Blood 9.9 mg/dL (8.5-10.1); Creatinine, Blood 0.55 mg/dL (0.40-1.00); Globulin, Blood 3.2 g/dL (2.2-4.0); Potassium, Blood 3.3 mmol/L (3.5-5.5); Total Protein, Blood 6.6 g/dL (6.4-8.2)
[2024-10-13 23:35] VITALS: BP 177/63
== END 2024-10-13 23:46 | disposition other institution (70) ==
LOC: ER 21:01
PROVIDERS: Student in an Organized Health Care Education/Training Program
DX: I10 Essential (primary) hypertension (principal); Z88.5 Allergy status to narcotic agent; Z88.8 Allergy status to other drugs, medicaments and biological substances; Z88.6 Allergy status to analgesic agent; Z79.82 Long term (current) use of aspirin; Z79.899 Other long term (current) drug therapy
CPT/HCPCS: 80053; 85025; 96372; 99283

== ENCOUNTER → 2025-05-02 | Outpatient (CLI) | payer MEDICARE, OTHER | LOC: LAB 17:19 → LAB SHORT 17:19 | DX: R31.0 Gross hematuria (principal) | CPT/HCPCS: 87086 ==

== ENCOUNTER → 2025-06-06 | Outpatient (CLI) | payer MEDICARE, OTHER ==
[2025-06-06 15:05] LABS: Bacterial Vaginosis PCR Negative (NEGATIVE); Candida Group, PCR NOT DETECTED (NOT DETECT); Candida glabrata-krusei, PCR NOT DETECTED (NOT DETECT)
== END ==
LOC: LAB SHORT 12:27 → LAB 12:27
PROVIDERS: Student in an Organized Health Care Education/Training Program
DX: N30.01 Acute cystitis with hematuria (principal); R30.0 Dysuria
CPT/HCPCS: 81515; 87086